=== PATIENT | female | born 1975 | race Caucasian/White ===

== ENCOUNTER 2020-07-11 10:10 | Outpatient (REF) | payer MEDICAID, SELFPAY ==
[2020-07-11 10:56] LABS: MANUAL DIFF FLAG NO
[2020-07-11 11:16] LABS: Basophils Percent Auto 0.3 % (0-2); Eosinophils Absolute Auto 0.1 X10*3/uL (0.0-0.4); Eosinophils Percent Auto 1.5 % (0-4); Hematocrit 35.8 % (37-47); Hemoglobin 11.9 g/dl (12.0-16.0); Imm Gran Abs Auto 0.03 X10*3/uL (0.00-0.03); Imm Gran Pct Auto 0.4 % (0.0-0.4); Lymphocytes Absolute Auto 1.8 X10*3/uL (1.2-4.9); Lymphocytes Percent Auto 24.9 % (20-40); Mean Corpuscular HGB Conc 33.2 g/dl (31.0-35.0); Mean Corpuscular Volume 84.2 fL (80-98); Mean Platelet Volume 10.2 fL (9.4-12.3); Monocytes Absolute Auto 0.4 X10*3/uL (0.1-1.2); Monocytes Percent Auto 5.8 % (2-11); Neutrophils Absolute Auto 4.9 X10*3/uL (2.0-8.3); Neutrophils Percent Auto 67.1 % (45-73); Platelet Count 316 X10*3/uL (160-400); Red Blood Count 4.25 X10*6/uL (4.20-5.50); Red Cell Distribution Width 13.7 % (11.0-16.0); White Blood Count 7.2 X10*3/uL (4.8-10.8)
[2020-07-11 11:24] LABS: Estimated Average Glucose 120 mg/dL; Hemoglobin A1c % 5.8 %
[2020-07-11 11:32] LABS: Alanine Aminotransferase 21 U/L (0-31); Albumin Level 4.4 g/dL (3.5-5.0); Alkaline Phosphatase 58 U/L (39-117); Anion Gap 13 (12-20); Aspartate Amino Transferase 16 U/L (5-31); Bilirubin Total 0.7 mg/dL (0.0-1.0); Blood Urea Nitrogen 12 mg/dL (9-16); Calcium 9.2 mg/dL (8.4-10.2); Carbon Dioxide 25 mmol/L (22-29); Chloride 105 mmol/L (96-108); Cholesterol 137 mg/dL; Estimated Glomerular Filt Rate > 60; Glucose Random 109 mg/dL (60-115); HDL Cholesterol 44 mg/dL; Iron 79 mcg/dL (30-160); LDL Cholesterol Calculated 74 mg/dl; Percent Iron Saturation 24 % (15-50); Sodium 139 mmol/L (135-145); Total Iron Binding Capacity 334 mcg/dL (228-428); Total Protein 7.8 g/dL (6.5-8.0); Triglycerides 99 mg/dL; Unsaturated Iron Binding 255 ug/dL
[2020-07-11 11:46] LABS: Ferritin 14 ng/mL (10-250)
[2020-07-11 12:15] LABS: Erythrocyte Sedimentation Rate 14 MM/HR (0-20)
[2020-07-12 13:27] LABS: Lyme Abs Screen <0.90 index
[2020-07-13 14:07] LABS: Anti Nuclear Antibody Screen NEGATIVE (NEGATIVE)
== END 2020-07-11 10:11 | disposition home or self-care (01) ==
LOC: HO.LAB 10:10
PROVIDERS: PCP Family Medicine; Visit Provider Family Medicine
DX: D64.9 Anemia, unspecified (principal); I10 Essential (primary) hypertension; M25.561 Pain in right knee; Z86.69 Personal history of other diseases of the nervous system and sense organs
CPT/HCPCS: 36415; 80053; 80061; 82728; 83036; 83540; 85025; 85652; 86038; 86039; 86617; 86618

== ENCOUNTER 2020-07-23 07:41 | Outpatient (REF) | payer MEDICAID, SELFPAY ==
--- NOTE | ~2020-07-23 | XR_ITS ---
EXAMINATION: KNEE X-RAY CLINICAL INFORMATION: Pain COMPARISON: None TECHNIQUE: Standing AP view of both knees and lateral and sunrise view of the right knee FINDINGS: Right knee: Bone alignment is normal. No fracture or dislocation is seen. The femoral tibial joint are normal. There are small osteophytes at the patellofemoral joint. There is no significant joint effusion. Standing AP view of the left knee is unremarkable. XR/XR knee RT 3V IMPRESSION: Small osteophytes at the right patella femoral joint otherwise unremarkable exam.
--- NOTE | ~2020-07-23 | XR_ITS ---
EXAMINATION: KNEE X-RAY CLINICAL INFORMATION: Pain COMPARISON: None TECHNIQUE: Standing AP view of both knees and lateral and sunrise view of the right knee FINDINGS: Right knee: Bone alignment is normal. No fracture or dislocation is seen. The femoral tibial joint are normal. There are small osteophytes at the patellofemoral joint. There is no significant joint effusion. Standing AP view of the left knee is unremarkable. XR/XR knee standing BI IMPRESSION: Small osteophytes at the right patella femoral joint otherwise unremarkable exam.
== END 2020-07-23 07:42 | disposition home or self-care (01) ==
LOC: HO.HOSX 07:41
PROVIDERS: Visit Provider Physician Assistant
DX: M25.561 Pain in right knee (principal); M22.2X1 Patellofemoral disorders, right knee
CPT/HCPCS: 20610; 73562; 73564; 73565; 99202; J1040

== ENCOUNTER 2021-07-24 09:49 | Outpatient (REF) | payer MEDICAID, SELFPAY ==
--- NOTE | ~2021-07-24 | MM_ITS ---
EXAMINATION: MM SCREENING DIGITAL BREAST TOMOSYNTHESIS, BILATERAL CLINICAL INFORMATION: Screening. Asymptomatic. History reduction mammoplasty. Prior mammography more than 10 years ago, purged. Family history breast cancer, mother, sister, paternal grandmother, maternal cousin. The lifetime risk of breast cancer based on the Tyrer-Cuzick Model is 31%. COMPARISON: None (current study represents no baseline exam). TECHNIQUE: Digital breast tomosynthesis is performed in both the craniocaudal and mediolateral oblique views along with computer-aided detection (CAD). Synthesized 2D images are generated from the tomosynthesis. FINDINGS: There are scattered areas of fibroglandular density (ACR BI-RADS breast composition Category b). Breast tissue composition borders on heterogeneously dense. There are no significant masses, abnormal calcifications, or other abnormalities. No architectural abnormality. The axilla and skin contours are unremarkable. MM/MM tomosynthesis screening BI IMPRESSION: No mammographic evidence of malignancy. ASSESSMENT: BI-RADS 1: Negative RECOMMENDATION: 1. Routine annual mammography screening. 2. The lifetime risk of breast cancer based on the Tyrer-Cuzick Model is 31%. Additional annual adjunct screening with breast MRI may be of benefit in women with a risk score of 20% or greater. This patient's information was entered into a reminder system with a target due date for their next mammogram.
== END 2021-07-24 09:50 | disposition home or self-care (01) ==
LOC: HO.MAMMO 09:49
PROVIDERS: Visit Provider Family Medicine
DX: Z12.31 Encounter for screening mammogram for malignant neoplasm of breast (principal)
CPT/HCPCS: 77063; 77067

== ENCOUNTER → 2021-08-09 14:59 | Outpatient (BNVA) | payer MEDICAID, SELFPAY | PROVIDERS: PCP Family Medicine; Referring Provider Family Medicine; Visit Provider Nurse Practitioner | DX: K64.9 Unspecified hemorrhoids (principal) | CPT/HCPCS: 99202; 99212 ==

== ENCOUNTER → 2021-09-05 11:17 | Outpatient (BNVA) | payer MEDICAID, SELFPAY | PROVIDERS: PCP Family Medicine; Visit Provider Surgery | DX: K64.8 Other hemorrhoids (principal) | CPT/HCPCS: 46600; 99202 ==

== ENCOUNTER 2021-10-18 06:51 | Day surgery (SDC) | payer MEDICAID, SELFPAY ==
[2021-10-15 09:53] VITALS: BMI 39.6
--- NOTE | 2021-10-17 11:00 | P.CONAN_ITS ---
Documented by User: Velia Teran NP 10/17/21 11:00 HPI - Anesthesia Eval Consult details Narrative: 46yo F for EUA, Hemorrhoidectomy PMFSH Active Problems Active Problems: All Active Problems (Updated 09/05/21 @ 14:03 by Osbaldo Herron MD) Hemorrhoids with complication (Acute) Morbid obesity (Acute) Migraines (Acute) Asthma (Acute) Hypertension (Acute) Hemorrhoids (Acute) Allergic rhinitis (Acute) Patellofemoral syndrome of right knee (Acute) Knee pain (Acute) Past Medical History Medical History Asthma Hemorrhoids with complication Hypertension Migraines Morbid obesity Surgical History Surgical History Hx of breast reduction, elective Hx of emergency section Social History Social History Alcohol intake: current Alcohol intake frequency: holidays/special occasions only Patient Tobacco Use Status: Never used Tobacco Use of substances other than those prescribed or required for medical reasons: No Are you DNR?: No Advance Directives: No Advance Directives Information Provided: Yes Patient : No 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al status: unemployed 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 Meds Allergies Allergy/AdvReac Type Severity Reaction Status Date / Time morphine Allergy Mild Anaphylaxis Verified 10/18/21 07:37 pollen extracts [POLLEN] Allergy Unknown UNKNOWN Unverified 09/05/21 11:31 Home Medications Medication Instructions Recorded Confirmed Last Taken Type albuterol sulfate 90 mcg/actuation 2 puff PO Q4-6H PRN Nausea 08/09/21 10/15/21 Unknown History aerosol inhaler (ProAir HFA) amitriptyline 25 mg tablet 25 mg PO BEDTIME 08/09/21 10/15/21 Unknown History chlorthalidone 25 mg tablet 25 mg PO DAILY 08/09/21 10/15/21 Unknown History docusate sodium 100 mg capsule 100 mg PO BID constipation 08/09/21 10/15/21 Unknown History ferrous sulfate 325 mg (65 mg 325 mg PO BID 08/09/21 10/15/21 Unknown History iron) tablet lisinopril 5 mg tablet 5 mg PO DAILY 08/09/21 10/15/21 Unknown History metoprolol succinate 50 mg 150 mg PO DAILY 08/09/21 10/15/2110/18/22 History tablet,extended release 24 hr ondansetron HCl 4 mg tablet 4 mg PO Q8H PRN nausea 08/09/21 10/15/21 Unknown History Exam Exam Date and Time: October 17, 2021 1100 Height,Weight and Vital Signs: Height 5 ft 6 in Weight 111.584 kg Assessment and Plan Assessment Anesthesia Assessment: Chart Reviewed Documented by User: Anshul Beach MD 10/18/21 08:25 [facility] Past Medical History Medical History Asthma Hemorrhoids with complication Hypertension Migraines Morbid obesity Patient : No Family History Family history of problems with anesthesia: No Surgical History Surgical History Hx of breast reduction, elective Hx of emergency section History of Problems with Anesthesia: No Social History Social History Alcohol intake: current Alcohol intake frequency: holidays/special occasions only Patient Tobacco Use Status: Never used Tobacco Use of substances other than those prescribed or required for medical reasons: No Are you DNR?: No Advance Directives: No Advance Directives Information Provided: Yes Patient : No 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al status: unemployed 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 Meds Allergies Allergy/AdvReac Type Severity Reaction Status Date / Time morphine Allergy Mild Anaphylaxis Verified 10/18/21 07:37 pollen extracts [POLLEN] Allergy Unknown UNKNOWN Unverified 09/05/21 11:31 Home Medications Medication Instructions Recorded Confirmed Last Taken Type albuterol sulfate 90 mcg/actuation 2 puff PO Q4-6H PRN Nausea 08/09/21 10/15/21 Unknown History aerosol inhaler (ProAir HFA) amitriptyline 25 mg tablet 25 mg PO BEDTIME 08/09/21 10/15/21 Unknown History chlorthalidone 25 mg tablet 25 mg PO DAILY 08/09/21 10/15/21 Unknown History docusate sodium 100 mg capsule 100 mg PO BID constipation 08/09/21 10/15/21 Unknown History ferrous sulfate 325 mg (65 mg 325 mg PO BID 08/09/21 10/15/21 Unknown History iron) tablet lisinopril 5 mg tablet 5 mg PO DAILY 08/09/21 10/15/21 Unknown History metoprolol succinate 50 mg 150 mg PO DAILY 08/09/21 10/15/21 10/18/21 History tablet,extended release 24 hr ondansetron HCl 4 mg tablet 4 mg PO Q8H PRN nausea 08/09/21 10/15/21 Unknown History Exam Airway Mallampati Class: II TM Dist: >3cm Neck ROM: Full Loose/Missing/Broken Teeth: No Heart: ok Lungs: ok Assessment and Plan Final Anesthetic Review Family History of Problems with Anesthesia: No History of Problems with Anesthesia: No NPO: Yes ASA Class: II Final Preanesthetic Review: No Changes in Pt Med Stat, Meds/Allgs Chart Reviewed, Consent Obtained/Reviewed and Anes Risks/Benef Reviewed Patient Risk: Intermediate Procedure Risk: Intermediate Anesthetic Plan Anesthetic Plan: GA and Agree w/ Assess. and Plan Disposition: Standard PACU
[2021-10-18] VITALS (10 sets, daily range): BP systolic 136–181; BP diastolic 76–87; PULSE 52–65; RESP 12–18; TEMP 36.5–37.1; O2SAT 94–99; BMI 37.8
[2021-10-18 07:32] LABS: UPreg QC Valid YES; Urine Pregnancy NEGATIVE (NEGATIVE)
--- NOTE | 2021-10-18 08:08 | P.HPSUR_ITS ---
Pre-Procedural Eval Section A Date of Service: 10/18/21 Section B Chief Complaint: hemorrhoids Details of Present Illness: Has long history of pain and swelling with bulky hemorrhoids Relevant Family History (Specify if Yes): No Relevant Social History: None Allergies: Allergies Allergy/AdvReac Type Severity Reaction Status Date / Time morphine Allergy Mild Anaphylaxis Verified 10/18/21 07:37 pollen extracts [POLLEN] Allergy Unknown UNKNOWN Unverified 09/05/21 11:31 Review of Systems Sugical H&P ROS: Negative: Constitution, Cardiovascular, Respiratory, Neurological, Psychiatric, Hem-Onc, Allergic/Immunologic, Gastrointestinal, Genitourinary, Musculoskeletal, Integumentary, Endocrine and Eyes/Ears/N ose/Throat Exam Surgical H&P Exam: Normal: HEENT, Normal: Heart, Normal: Lungs, Normal: Extremities, Normal: Abdomen, Normal: Skin and Normal: Neurological Exam Comment: Bulky hemorrhoids Plan Diagnosis/Plan: Unchanged I have reviewed the history and physical and performed a pertinent physical examination on my patient. No changes have occurred unless specified.
--- NOTE | 2021-10-18 09:24 | P.OP_ITS ---
Operative Note Operative Note Date of Service: 10/18/21 Narrative: Preop diagnosis: Internal and external hemorrhoids, with chronic pain and bleeding Postop diagnosis: The same Procedure: Exam under anesthesia hemorrhoidectomy x3 columns Surgeon: Osbaldo Herron MD The patient is a 46-year-old female, who was had chronic complaints of pain and bleeding with her hemorrhoids. She was noted to have bulky hemorrhoidal columns a mix of internal external on both the left and right side on examination in the office. She wanted to proceed with hemorrhoidectomy. She understood the technique of the procedure and was aware of the risks, benefits, and alternatives She was brought to the operating room. She was placed in prone orlin-knife position under general anesthesia via endotracheal tube. The buttocks were retracted with wide tape laterally. The perianal area was prepped and draped in the usual sterile fashion. A surgical time-out was done. The patient received Cefotan 2 g IV preoperatively. I infiltrated the perianal area with lidocaine 1%. Examination of the anal orifice revealed bulky external hemorrhoidal columns mostly on the left. I inserted a Alondra Wasserman retractor and examined the anal canal circumferentially. Again these columns were seen as a mix of internal external. There was 1 bulky hemorrhoidal column on the right anterior, right posterior as well as the left side. I applied a Mendes grasper at the large hemorrhoidal column on the right anteriorly. Had a neuvcl-te-sxuut stitch at the pedicle past the dentate line. This was done using a chromic 3-0. I made an incision around this hemorrhoidal column to the perianal skin using a blade 15. I excised this hemorrhoidal column above the plane of the sphincters using scissors. I closed this incision with a running chromic 3-0 stitch. Additional hemostatic qqeglg-ut-axelq sut ures were placed as well. This procedure was duplicated on the hemorrhoidal column on the left lateral side. Again this was retracted the Mendes grasper. I made a figure stitch at the pedicle and made an incision around this column to the perianal skin using blade 15. I excised this hemorrhoidal column above the plane of sphincters along this incision using a pair of scissors and closed this incision with a running chromic 3-0 stitch. Again hemostatic sutures were placed in addition There was another hemorrhoidal column on the right side more posteriorly and this was removed in the same fashion as above. This was retracted with a Mendes grasper and I made a yieehf-kw-ggnlo stitch at the pedicle using chromic 3-0. I made an incision around this hemorrhoidal column to the perianal skin using blade 15. And excised this above the plane of sphincters using scissors. I closed this incision with a running chromic 3-0 stitch as well I observed for hemostasis. Additional hemostatic vwmyll-mw-qdeaq sutures were placed. Once hemostasis was verified after observation for about 2 minutes, I placed and rolled Gelfoam into the anal canal I infiltrated the perianal area with Marcaine 0.5% for postop analgesia. Procedure was then completed. The patient tolerated procedure well. There were no complications noted. Initial final counts of sponges and instruments were correct. Estimated blood loss was about 25 cc . The patient extubated without difficulty and transferred to the recovery room with stable vital signs.
[2021-10-18] MEDS: Acetaminophen 325 MG TABLET 650 MG PO (10:15)
[2021-10-18] MEDS: fentaNYL citrate/PF 100 MCG/2 ML VIAL 50 MCG IVPUSH (10:16)
== END 2021-10-18 11:40 | disposition home or self-care (01) ==
PROVIDERS: Nurse Practitioner; PCP Family Medicine; Visit Provider Surgery
PROC: (CPT 46260; principal; 2021-10-18 08:30)
DX: K64.8 Other hemorrhoids (principal); K64.4 Residual hemorrhoidal skin tags; G89.29 Other chronic pain; K59.00 Constipation, unspecified; I10 Essential (primary) hypertension; E66.01 Morbid (severe) obesity due to excess calories; Z68.39 Body mass index [BMI] 39.0-39.9, adult; J45.909 Unspecified asthma, uncomplicated; Z79.899 Other long term (current) drug therapy; Z88.8 Allergy status to other drugs, medicaments and biological substances
CPT/HCPCS: 46260; 81025; 88304; J1100; J1885; J2250; J2405; J2795; J3010

== ENCOUNTER 2021-10-19 09:52 | Emergency (ER) | payer MEDICAID, SELFPAY ==
[2021-10-19 09:57] VITALS: BP 190/105; PULSE 66; RESP 19; TEMP 36.6; O2SAT 98; BMI 37.8
--- NOTE | 2021-10-19 12:02 | ED_ITS ---
HPI - General Adult General Chief complaint: General Medical Stated complaint: hemorrhoids Time Seen by Provider: 10/19/21 11:36 Source: patient Mode of arrival: ambulatory Limitations: no limitations History of Present Illness HPI narrative: 46 yo female who is POD 1 from hemorrhoidectomy who presents with rectal pain and bump . Had hemorrhoidectomy for internal hemorrhouds yesterday by Dr Herron and felt well after discharge. Last night increased pain after voiding and feels bump on the outside that wasnt there. She has not had bowel movement yet. No fevers, chills, vomiting. Took last dose of ibuprofen/oxycodone at 8am. Related Data Home Medications Medication Instructions Recorded Confirmed albuterol sulfate 90 mcg/actuation 2 puff PO Q4-6H PRN Nausea 08/09/21 10/15/21 aerosol inhaler (ProAir HFA) amitriptyline 25 mg tablet 25 mg PO BEDTIME 08/09/21 10/15/21 chlorthalidone 25 mg tablet 25 mg PO DAILY 08/09/21 10/15/21 docusate sodium 100 mg capsule 100 mg PO BID constipation 08/09/21 10/15/21 ferrous sulfate 325 mg (65 mg 325 mg PO BID 08/09/21 10/15/21 iron) tablet lisinopril 5 mg tablet 5 mg PO DAILY 08/09/21 10/15/21 metoprolol succinate 50 mg 150 mg PO DAILY 08/09/21 10/15/21 tablet,extended release 24 hr ondansetron HCl 4 mg tablet 4 mg PO Q8H PRN nausea 08/09/21 10/15/21 Previous Rx's Medication Instructions Recorded ibuprofen 600 mg tablet 600 mg PO Q6H PRN pain #30 tabs 10/18/21 oxycodone-acetaminophen 5 mg-325 1 tab PO Q4-6H PRN pain #30 tabs 10/18/21 mg tablet (Percocet) lidocaine 4 % topical gel 1 appl topical TID PRN pain #113 10/19/21 grams Allergies Allergy/AdvReac Type Severity Reaction Status Date / Time morphine Allergy Mild Anaphylaxis Verified 10/18/21 07:37 pollen extracts [POLLEN] Allergy Unknown UNKNOWN Unverified 09/05/21 11:31 Review of Systems Review of Systems: Yes all other systems are reviewed and are negative Constitutional: Constitutional: Reports no additional constitutional complaints, Denies body ache(s), Denies chills, Denies fever(s), Denies headache(s) and Denies weakness Eyes: Eyes: Reports no additional eye complaints and Denies change in vision ENT: Reports system reviewed and no additional complaints, except as documented, Denies dizziness, Denies headache(s), Denies nasal congestion, Denies nasal discharge and Denies neck pain Cardiovascular: Cardiovascular: Reports no additional cardiovascular complaints, Denies chest pain, Denies leg edema and Denies dyspnea Respiratory: Respiratory: Reports no additional respiratory complaints, Denies cough and Denies dyspnea Gastrointestinal: Gastrointestinal: Reports no additional gastrointestinal complaints, Denies abdominal pain, Denies diarrhea, Denies nausea and Denies vomiting Comments: +rectal pain Genitourinary: Genitourinary: Reports no additional female genitourinary complaints and Denies urinary incontinence Musculoskeletal: Musculoskeletal: Reports no additional musculoskeletal complaints, Denies back pain, Denies arthralgias, Denies joint swelling, Denies neck pain, Denies numbness and Denies tingling Integumentary/Breasts: Skin/Breast: Reports system reviewed and no additional complaints, except as docu and Denies rash Neurologic: Reports system reviewed and no additional complaints, except as documented, Denies dizziness, Denies headache(s), Denies numbness, Denies tingling and Denies weakness PMFSH Past Medical History Attestation statement: The following information was validated with the patient. 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 Physical Exam ED Vital Signs: Vital Signs - 24 hr 10/19/21 09:57 Temperature 98 F Pulse Rate 66 Respiratory Rate 19 Blood Pressure 190/105 H Pulse Oximetry 98 Oxygen Delivery Method Room Air BMI result Body Mass Index 37.8 Const General: cooperative, healthy appearing and comfortable Orientation/consciousness: patient oriented x3 Limitations: no limitations HENMT Head: Yes normal to inspection Ears: hearing grossly normal bilaterally Eyes General: appearance normal, both eyes and all related structures Pupils: Equal, round and reactive pupils present Neck Neck: Yes normal visual inspection Chest Chest palpation & inspection: normal inspection of the chest Resp Effort & Inspection: normal respiratory effort Cardio Peripheral pulses: Peripheral pulses 2+ throughout GI 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 Herron with a painful bump noted externally throughout the night. On exam the patient has what appears to be ?external hemorrhoid but does not appear to be thrombosed. There is no redness, drainage from the site. Patient is afebrile and nontoxic appearing. Discussed the case with on-call surgery Dr. Manzano. Recommended topical lidocaine for home. Continue home medications and stool regimen. Patient should follow-up with Dr. Herron as next week Medical Records Medical records reviewed: Yes I reviewed the patient's medical records. Lab Data Lab results reviewed: Yes I reviewed the patient's lab results. Discharge Plan Discharge Clinical Impression: Hemorrhoids Patient Disposition: Home, Self-Care Instructions: Hemorrhoids (ED), Sitz Bath (DC), Hemorrhoidectomy (DC) Additional Instructions: Continue home medications Apply the topical numbing medications to the affected area which was general surgeries recommendation Call Dr Herron office Thursday for follow-up as discussed Prescriptions: New lidocaine 4 % gel 1 appl topical TID PRN (Reason: pain) Qty: 113 0RF No Action oxycodone-acetaminophen [Percocet] 5-325 mg tablet 1 tab PO Q4-6H PRN (Reason: pain) Qty: 30 0RF Rx Instructions: Partial Fill upon patient request. ibuprofen 600 mg tablet 600 mg PO Q6H PRN (Reason: pain) Qty: 30 0RF metoprolol succinate 50 mg tablet extended release 24 hr 150 mg PO DAILY lisinopril 5 mg tablet 5 mg PO DAILY amitriptyline 25 mg tablet 25 mg PO BEDTIME chlorthalidone 25 mg tablet 25 mg PO DAILY albuterol sulfate [ProAir HFA] 90 mcg/actuation HFA aerosol inhaler 2 puff PO Q4-6H PRN (Reason: Nausea) ondansetron HCl 4 mg tablet 4 mg PO Q8H PRN (Reason: nausea) ferrous sulfate 325 mg (65 mg iron) tablet 325 mg PO BID docusate sodium 100 mg capsule 100 mg PO BID Referrals: Osbaldo Herron MD [Physician] - 3 days
[2021-10-19] MEDS: oxyCODONE HCl Immed Release 5 MG TABLET PO (12:24)
[2021-10-19] MEDS: Ketorolac Tromethamine 60 MG/2 ML VIAL IM (12:25)
[2021-10-19] MEDS: Acetaminophen 325 MG TABLET 975 MG PO (12:25)
== END 2021-10-19 13:05 | disposition home or self-care (01) ==
PROVIDERS: Emergency Provider Emergency Medicine; PCP Family Medicine
DX: K64.9 Unspecified hemorrhoids (principal); I10 Essential (primary) hypertension; E66.01 Morbid (severe) obesity due to excess calories; Z68.37 Body mass index [BMI] 37.0-37.9, adult; Z79.899 Other long term (current) drug therapy
CPT/HCPCS: 96372; 99283; 99284; J1885

== ENCOUNTER 2023-01-23 10:23 | Outpatient (AMB) | payer MEDICAID, SELFPAY ==
--- NOTE | 2023-01-23 10:26 | A.OFFVIS_ITS ---
Intake Vital Signs 3 01/23/23 10:27 Height 5 ft 6 in Weight 238 lb 1.588 oz BMI 38.4 BP 137/74 Blood Pressure Location Rt brachial Position Sitting Pulse 68 Intake Visit Reasons: Colonoscopy screening Intake Note: Patient presents to in office visit today for colonoscopy screening. CC: Patient c/o abdominal bloating, epigastric pain, and upset stomach after eating. She also reports increased gas,n and nausea. Entry Level Account Manager Required: No Allergies morphine Allergy (Mild, Verified 01/23/23 10:35) Anaphylaxis pollen extracts [POLLEN] Allergy (Unknown, Verified 01/23/23 10:35) UNKNOWN sumatriptan Adverse Reaction (Intermediate, Verified 01/23/23 11:00) Numbness HPI Colonoscopy screening 2 HPI0 Details 46-YEAR-OLD FEMALE HERE FOR PREPROCEDURA L MEETING TO DISCUSS a screening colonoscopy.. She is referred by Gisselle Pfefifer MD of [facility]. PMX Hypertension Headache Asthma Allergic rhinitis * SURGICAL HISTORY hemorrhoidectomy - 2021 Botox injection C section Bilateral breast reduction * ALLERGIES Morphine - tachycardia Imitrex - numbness * [employer] LABS: none since 2020 TODAY'S VISIT [place] #declines This will be her first colonoscopy. 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 However she will have diarrhea if she eats greasy foods such as fried foods or at [employer]. Her dtr hd her GB removed r/t foods. No known food allergies in family. She takes zofran for the bloating and burping. She will also have HB at times. She does not take consistent acid reducing medications. The above sx happen 3-4 days during the week, she has colicky pain when it happens and will last about 2-3 hours and is relieved with defecation. The pain will reach 9/10 at times. Will get US and HP breath test. There are no prior problems with anesthesia or sedation. Her asthma is well controlled, and she denies any cardiac problems. No ID problems. No known FHX of crc or polyps. . Return office visit in 6 weeks to yas iyer her response to the dicyclomine and of course after the colonoscopy. 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 [employer] Const Denies fatigue, Denies fever(s), Denies night sweats, Denies poor appetite and Denies weight loss Eyes Details: glasses Reports requires corrective lenses ENT Reports Normal hearing present, Denies dysphagia, Denies odynophagia, Denies throat swelling and Denies tongue swelling Card Reports no additional complaints Resp Reports no additional complaints GI Reports abdominal pain, Denies melena, Reports bloating, Denies hematochezia, Reports constipation, Denies GI cramping, Denies dysphagia, Denies excessive flatus, Denies early satiety, Reports heartburn, Reports diarrhea, Denies nausea, Denies odynophagia, Denies vomiting and Denies hematemesis Skin/Breast Denies pruritus, Denies lesions, Denies rash and Denies jaundice Neuro Reports Normal hearing present and Denies Abnormal speech present Endo Denies fatigue Aller/Immun Denies throat swelling and Denies tongue swelling Physical Exam Vital Signs: Last Vital Signs Pulse 68 01/23/23 10:27 BP 137/74 01/23/23 10:27 BMI result Body Mass Index 38.4 Const General: cooperative, no acute distress, well developed and well groomed Nutritional Appearance: well nourished and obese morbidly obese Orientation/consciousness: oriented to person, oriented to place and oriented to time Limitations: No language barrier HEENT Head: Yes normocephalic and Yes atraumatic Eyes General: appearance normal, both eyes and all related structures Pupils: Equal, round and reactive pupils present Neck Neck: Yes normal visual inspection and Yes no lymphadenopathy Thyroid: Thyroid normal Resp Effort & Inspection: normal respiratory effort and able to speak in complete sentences Auscultation: clear to auscultation bilaterally Cardio Rate: regular rate Rhythm: regular rhythm Heart sounds: Normal, physiologic split S2 sound present Peripheral pulses: radial pulses present and posterior tibial pulses present GI Inspection: Yes distended (mildly), Yes Abdominal panniculus present, Yes obesity, Yes scar and Yes striae Palpation (GI): Soft to palpation, nontender, no guarding, not rigid and No hepatosplenomegaly present Percussion: Yes normal to percussion Auscultation: normal bowel sounds Rectal Exam - Female: deferred Abdomen image: 2 1. surgical scar Skin General skin exam: no rashes or lesions noted, turgor normal, skin not dry, no jaundice, No spider nevi and no striae Rashes: no rashes Nails: normal Neuro General: oriented to person, oriented to place and oriented to time Cranial nerves: Yes Equal, round and reactive pupils present and Yes Normal hearing present Speech: No Abnormal speech present Extrem General: Yes normal to inspection, No clubbing, No cyanosis and No edema Psych Appearance: grossly normal and well kempt Mental Status: mental status grossly normal Speech and movement: Normal speech and movement present Affect: normal affect Attitude: cooperative Thought process: Normal thought process present and not confabulating Thought content: Normal thought content present Insight: Limited insight present (Psych) Judgement: Limited judgement present (Psych) Assessment & Plan Assessment & Plan (1) Pre-op examination: Code(s): Z01.818 - Encounter for other preprocedural examination (2) Morbid obesity: Code(s): E66.01 - Morbid (severe) obesity due to excess calories (3) Asthma: Code(s): J45.909 - Unspecified asthma, uncomplicated (4) Irritable bowel syndrome with both constipation and diarrhea: Code(s): K58.2 - Mixed irritable bowel syndrome (5) Upper abdominal pain: Code(s): R10.10 - Upper abdominal pain, unspecified Plan [place] #declines This will be her first colonoscopy. 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 However she will have diarrhea if she eats greasy foods such as fried foods or at [employer]. Her dtr hd her GB removed r/t foods. No known food allergies in family. She takes zofran for the bloating and burping. She will also have HB at times. She does not take consistent acid reducing medications. The above sx happen 3-4 days during the week, she has colicky pain when it happens and will last about 2-3 hours and is relieved with defecation. The pain will reach 9/10 at times. Will get US and HP breath test. There are no prior problems with anesthesia or sedation. Her asthma is well controlled, and she denies any cardiac problems. No ID problems. No known FHX of crc or polyps. . Return office visit in 6 weeks to evaluate her response to the dicyclomine and of course after the colonoscopy. Orders: Orders 2 Complete Blood Count Auto Diff Today E66.01 - Morbid (severe) obesity due to excess calories, J45.909 - Unspecified asthma, uncomplicated, Z01.818 - Encounter for other preprocedural examination US abdomen complete Today R10.10 - Upper abdominal pain, unspecified Comprehensive Met. Panel Today E66.01 - Morbid (severe) obesity due to excess calories, J45.909 - Unspecified asthma, uncomplicated, Z01.818 - Encounter for other preprocedural examination Colonoscopy - GI Use Only Today E66.01 - Morbid (severe) obesity due to excess calories, J45.909 - Unspecified asthma, uncomplicated, Z01.818 - Encounter for other preprocedural examination H Pylori Breath Test Today A04.8 - Other specified bacterial intestinal infections Medications: New 2 bisacodyl (Dulcolax (bisacodyl)) 10 mg (2 x 5 mg) PO BEDTIME 2 days 4 tabs 0RF sennosides (Senna Laxative) 17.2 mg (2 x 8.6 mg) PO BEDTIME 60 tabs 6RF K58.2 - Mixed irritable bowel syndrome dicyclomine 10 mg PO QID 120 caps 6RF K58.2 - Mixed irritable bowel syndrome Coding Level of Care Code New Pt Level 3 (64955) Diagnoses Pre-op examination Z01.818 Morbid obesity E66.01 Asthma J45.909 Irritable bowel syndrome with both constipation and diarrhea K58.2 Upper abdominal pain R10.10
[2023-01-23 10:27] VITALS: BP 137/74; PULSE 68; BMI 38.4
== END 2023-01-23 11:50 | disposition home or self-care (01) ==
PROVIDERS: PCP Family Medicine; Visit Provider Nurse Practitioner
DX: Z01.818 Encounter for other preprocedural examination (principal); Z12.11 Encounter for screening for malignant neoplasm of colon; K58.2 Mixed irritable bowel syndrome
CPT/HCPCS: 99212

== ENCOUNTER → 2023-01-23 10:23 | Outpatient (BNVA) | payer MEDICAID, SELFPAY | PROVIDERS: PCP Family Medicine; Visit Provider Nurse Practitioner | DX: Z01.818 Encounter for other preprocedural examination (principal); K58.2 Mixed irritable bowel syndrome; R10.10 Upper abdominal pain, unspecified; J45.909 Unspecified asthma, uncomplicated; E66.01 Morbid (severe) obesity due to excess calories | CPT/HCPCS: 83013; 99212 ==

== ENCOUNTER 2023-01-23 14:29 | Outpatient (REF) | payer MEDICAID, SELFPAY ==
[2023-01-30 13:43] LABS: H Pylori Breath Test Positive (Negative)
== END 2023-01-23 14:30 | disposition home or self-care (01) ==
LOC: HO.LNP 14:29
PROVIDERS: Visit Provider Nurse Practitioner
DX: A04.8 Other specified bacterial intestinal infections (principal)
CPT/HCPCS: 83013

== ENCOUNTER 2023-03-02 09:44 | Outpatient (REF) | payer MEDICAID, SELFPAY ==
--- NOTE | ~2023-03-02 | US_ITS ---
EXAMINATION: US ABDOMEN COMPLETE CLINICAL INFORMATION: Upper abdominal pain, unspecified. COMPARISON: Ultrasound abdomen 07/04/2010. TECHNIQUE: Real-time imaging of the abdominal viscera. FINDINGS: PANCREAS: The pancreatic tail is obscured by overlying bowel gas. The well-seen portions of the head and body are within normal limits. ABDOMINAL AORTA: The proximal, mid, and distal segments are normal in caliber. INFERIOR VENA CAVA: Visualized portions are normal. LIVER: Increased liver parenchyma echogenicity. There is a 3.7 x 3.1 x 3.2 cm rounded hypoechoic observation in the right hepatic lobe adjacent to the gallbladder fossa without discrete vascularity on color Doppler. No intrahepatic biliary ductal dilatation. GALLBLADDER: There is a 1.3 cm calculus impacted in the gallbladder neck. The gallbladder wall is within the upper limits of normal measuring 0.3 cm. No pericholecystic free fluid. Negative Dan's sign. COMMON BILE DUCT: Normal in caliber measuring 0.5 cm in diameter. RIGHT KIDNEY: Normal. No hydronephrosis. No renal calculi or focal parenchymal lesions. The kidney measures 11.1 cm in maximum dimension. LEFT KIDNEY: Normal. No hydronephrosis. No renal calculi or focal parenchymal lesions. The kidney measures 13.0 cm in maximum dimension. SPLEEN: Normal. The spleen measures 11.2 cm in maximum dimension. FREE FLUID: None. US/US abdomen complete IMPRESSION: 1. Cholelithiasis with a 1.3 cm calculus impacted in the gallbladder neck but no sonographic evidence to suspect acute cholecystitis. 2. There is a 3.7 cm rounded hypoechoic observation in the right hepatic lobe adjacent to the gallbladder fossa. While this could represent a focal area of fatty sparing, in view of size and somewhat rounded/masslike morphology, further characterization with an abdominal MRI with and without intravenous contrast is recommended. 3. Increased hepatic echogenicity suggesting hepatic steatosis or hepatocellular disease. Correlate with liver function tests. The report will be called to the ordering clinician by a [facility] Physician Feeder Catcher Tobacco.
== END 2023-03-02 09:45 | disposition home or self-care (01) ==
LOC: HO.US 09:44
PROVIDERS: PCP Family Medicine; Visit Provider Nurse Practitioner
DX: R10.10 Upper abdominal pain, unspecified (principal)
CPT/HCPCS: 76700

== ENCOUNTER 2023-03-06 09:53 | Outpatient (AMB) | payer MEDICAID, SELFPAY ==
[2023-03-06 10:03] VITALS: BP 180/98; PULSE 63; BMI 38.9
--- NOTE | 2023-03-06 10:03 | MHC.OFFVIS ---
Intake Vital Signs 03/06/23 10:03 Height 5 ft 6 in Weight 241 lb BMI 38.9 BP 180/98 H Blood Pressure Location Rt brachial Position Sitting Pulse 63 Intake Visit Reasons: H pylori/US follow up Intake Note: Patient returns to in office visit today in follow up of H pylori and US. CC: Patient states she is doing better from epigastric pain, bloating, and heartburn. Pt requesting refill on Ondansentron.Denies other GI symptoms. 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 Accompanied by: Self / Same As Patient Allergies morphine Allergy (Mild, Verified 03/06/23 10:11) Anaphylaxis pollen extracts [POLLEN] Allergy (Unknown, Verified 03/06/23 10:11) UNKNOWN sumatriptan Adverse Reaction (Intermediate, Verified 03/06/23 10:11) Numbness HPI H pylori/US follow up HPI Details Assessment & Plan (1) Pre-op examination: Code(s): Z01.818 - Encounter for other preprocedural examination (2) Morbid obesity: Code(s): E66.01 - Morbid (severe) obesity due to excess calories (3) Asthma: Code(s): J45.909 - Unspecified asthma, uncomplicated (4) Irritable bowel syndrome with both constipation and diarrhea: Code(s): K58.2 - Mixed irritable bowel syndrome (5) Upper abdominal pain: Code(s): R10.10 - Upper abdominal pain, unspecified Plan Turk[place] #declines This will be her first colonoscopy. 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 However she will have diarrhea if she eats greasy foods such as fried foods or at [employer]. Her dtr hd her GB removed r/t foods. No known food allergies in family. She takes zofran for the bloating and burping. She will also have HB at times. She does not take consistent acid reducing medications. The above sx happen 3-4 days during the week, she has colicky pain when it happens and will last about 2-3 hours and is relieved with defecation. The pain will reach 9/10 at times. Will get US and HP breath test. There are no prior problems with anesthesia or sedation. Her asthma is well controlled, and she denies any cardiac problems. No ID problems. No known FHX of crc or polyps. . Return office visit in 6 weeks to evaluate her response to the dicyclomine and of course after the colonoscopy. Orders: Orders Complete Blood Cou nt Auto Diff Today E66.01 - Morbid (s evere) obesity due to excess calorie s, J45.909 - Unspe cified asthma, unc omplicated, Z01.81 8 - Encounter for other preprocedura l examination US abdomen complet e Today R10.10 - Upper abd ominal pain, unspe cified Comprehensive Met. Panel Today E66.01 - Morbid (s evere) obesity due to excess calorie s, J45.909 - Unspe cified asthma, unc omplicated, Z01.81 8 - Encounter for other preprocedura l examination Colonoscopy - GI U se Only Today E66.01 - Morbid (s evere) obesity due to excess calorie s, J45.909 - Unspe cified asthma, unc omplicated, Z01.81 8 - Encounter for other preprocedura l examination H Pylori Breath Te st Today A04.8 - Other spec ified bacterial in testinal infection s Medications: New bisacodyl (Dulcola x (bisacodyl)) 10 mg (2 x 5 mg) P O BEDTIME 2 days 4 tabs 0RF sennosides (Senna Laxative) 17.2 mg (2 x 8.6 m g) PO BEDTIME 60 t abs 6RF K58.2 - Mixed irri table bowel syndro me dicyclomine 10 mg PO QID 120 caps 6RF K58.2 - Mixed irri table bowel syndro me LABS: None of the requested labs were obtained Laboratory Tests 01/23/23 11:49 H. pylori Breath T est Positive ULTRASOUND THE ABDOMEN 03/03/23 FINDINGS: PANCREAS: The pancreatic tail is obscured by overlying bowel gas. The well-seen portions of the head and body are within normal limits. ABDOMINAL AORTA: The proximal, mid, and distal segments are normal in caliber. INFERIOR VENA CAVA: Visualized portions are normal. LIVER: Increased liver parenchyma echogenicity. There is a 3.7 x 3.1 x 3.2 cm rounded hypoechoic observation in the right hepatic lobe adjacent to the gallbladder fossa without discrete vascularity on color Doppler. No intrahepatic biliary ductal dilatation. GALLBLADDER: There is a 1.3 cm calculus impacted in the gallbladder neck. The gallbladder wall is within the upper limits of normal measuring 0.3 cm. No pericholecystic free fluid. Negative Dan's sign. COMMON BILE DUCT: Normal in caliber measuring 0.5 cm in diameter. RIGHT KIDNEY: Normal. No hydronephrosis. No renal calculi or focal parenchymal lesions. The kidney measures 11.1 cm in maximum dimension. LEFT KIDNEY: Normal. No hydronephrosis. No renal calculi or focal parenchymal lesions. The kidney measures 13.0 cm in maximum dimension. SPLEEN: Normal. The spleen measures 11.2 cm in maximum dimension. FREE FLUID: None. US/US abdomen complete IMPRESSION: 1. Cholelithiasis with a 1.3 cm calculus impacted in the gallbladder neck but no sonographic evidence to suspect acute cholecystitis. 2. There is a 3.7 cm rounded hypoechoic observation in the right hepatic lobe adjacent to the gallbladder fossa. While this could represent a focal area of fatty sparing, in view of size and somewhat rounded/masslike morphology, further characterization with an abdominal MRI with and without intravenous contrast is recommended. 3. Increased hepatic echogenicity suggesting hepatic steatosis or hepatocellular disease. Correlate with liver function tests. The report will be called to the ordering clinician by a [facility] Phys[facility] [employer] Manager. COLONOSCOPY Scheduled for 03/10/2023 BIOPSY TODAY'S VISIT [place] #declines LABS: None of the requested labs were obtained She is only using the bentyl qd and this has helped resolve the colicky pain. She can also take extra doses if she has breakthrough. She feels that the bentyl make her pan devulcanizer her bowels more. She is also taking the omeprazole every day now and her HB has resolved. She completed the abx for the H pylori, and we will need to do a stool test to confirm eradication. I treated her with Leva/amox therapy. She saw Dr. Herron for roid surgery, and they are doing an emergency surgery on her as her ext roids are severe. The creon she pick due only 100 tablets r/t pharmacy having stock problems. Hopefully this will get resolved as she had the 1.3cm stone in the neck of the GB. Perhaps Dr. Herron can handle this too, I have provided a referral. She still has some epigastric pain, but it is not as bloated as before. Between H pylori and the gallstones her sx are likely multifactorial. She uses zofran for intermittent nausea and I give her a refill. Told her to go get labs today. Keep appt 03/31 after colonoscopy. 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 Review of Systems Const Denies fatigue, Denies fever(s), Reports headache(s), Denies night sweats, Denies poor appetite and Denies weight loss ENT Reports Normal hearing present, Denies dental pain, Denies dysphagia, Reports headache(s), Denies hearing loss, Denies mouth pain, Denies odynophagia, Denies throat swelling, Denies tongue swelling and Reports other (Dentition adequate) Card Reports no additional complaints Resp Reports no additional complaints GI Details: Reports abdominal pain, Denies melena, Denies bloating, Reports hematochezia, Reports constipation, Reports GI cramping, Denies dysphagia, Denies excessive flatus, Denies early satiety, Reports heartburn, Denies diarrhea, Reports nausea, Denies odynophagia, Denies vomiting and Denies hematemesis Skin/Breast Denies pruritus, Denies lesions, Denies rash and Denies jaundice Neuro Reports Normal hearing present, Denies Abnormal speech present and Reports headache(s) Endo Denies fatigue Aller/Immun Denies throat swelling and Denies tongue swelling Physical Exam Vital Signs: Last Vital Signs Pulse 63 03/06/23 10:03 BP 180/98 H 03/06/23 10:03 BMI result Body Mass Index 38.9 Const General: cooperative, no acute distress, well developed and well groomed Nutritional Appearance: well nourished and obese Orientation/consciousness: oriented to person, oriented to place and oriented to time Limitations: No language barrier HEENT Head: Yes normocephalic and Yes atraumatic Eyes General: appearance normal, both eyes and all related structures Pupils: Equal, round and reactive pupils present Neck Neck: Yes normal visual inspection and Yes no lymphadenopathy Thyroid: Thyroid normal Resp Effort & Inspection: normal respiratory effort and able to speak in complete sentences Auscultation: clear to auscultation bilaterally Cardio Rate: regular rate Rhythm: regular rhythm Heart sounds: Normal, physiologic split S2 sound present Peripheral pulses: radial pulses present and posterior tibial pulses present GI Inspection: No distended, Yes Abdominal panniculus present and Yes obesity Palpation (GI): Soft to palpation, nontender, no guarding, not rigid and No hepatosplenomegaly present Percussion: Yes normal to percussion Auscultation: normal bowel sounds Rectal Exam - Female: deferred Skin General skin exam: no rashes or lesions noted, turgor normal, skin not dry, no jaundice, No spider nevi and no striae Rashes: no rashes Nails: normal Neuro General: oriented to person, oriented to place and oriented to time Cranial nerves: Yes Equal, round and reactive pupils present and Yes Normal hearing present Speech: No Abnormal speech present Extrem General: Yes normal to inspection, No clubbing, No cyanosis and No edema Psych Appearance: grossly normal and well kempt Mental Status: mental status grossly normal Speech and movement: Normal speech and movement present Affect: normal affect Attitude: cooperative Thought process: Normal thought process present and not confabulating Thought content: Normal thought content present Insight: Fair insight present (Psych) and Limited insight present (Psych) Judgement: Fair judgement present (Psych) and Limited judgement present (Psych) Results Reviewed Results Reviewed: Laboratory Tests 03/06/23 11:22 WBC 7.6 Hgb 9.4 L Hct 29.9 L MCV 79.3 L MCH 24.9 L Plt Count 317 Laboratory Tests 01/23/23 11:49 H. pylori Breath Test Positive ULTRASOUND THE ABDOMEN 03/03/23 FINDINGS: PANCREAS: The pancreatic tail is obscured by overlying bowel gas. The well-seen portions of the head and body are within normal limits. ABDOMINAL AORTA: The proximal, mid, and distal segments are normal in caliber. INFERIOR VENA CAVA: Visualized portions are normal. LIVER: Increased liver parenchyma echogenicity. There is a 3.7 x 3.1 x 3.2 cm rounded hypoechoic observation in the right hepatic lobe adjacent to the gallbladder fossa without discrete vascularity on color Doppler. No intrahepatic biliary ductal dilatation. GALLBLADDER: There is a 1.3 cm calculus impacted in the gallbladder neck. The gallbladder wall is within the upper limits of normal measuring 0.3 cm. No pericholecystic free fluid. Negative Dan's sign. COMMON BILE DUCT: Normal in caliber measuring 0.5 cm in diameter. RIGHT KIDNEY: Normal. No hydronephrosis. No renal calculi or focal parenchymal lesions. The kidney measures 11.1 cm in maximum dimension. LEFT KIDNEY: Normal. No hydronephrosis. No renal calculi or focal parenchymal lesions. The kidney measures 13.0 cm in maximum dimension. SPLEEN: Normal. The spleen measures 11.2 cm in maximum dimension. FREE FLUID: None. US/US abdomen complete IMPRESSION: 1. Cholelithiasis with a 1.3 cm calculus impacted in the gallbladder neck but no sonographic evidence to suspect acute cholecystitis. 2. There is a 3.7 cm rounded hypoechoic observation in the right hepatic lobe adjacent to the gallbladder fossa. While this could represent a focal area of fatty sparing, in view of size and somewhat rounded/masslike morphology, further characterization with an abdominal MRI with and without intravenous contrast is recommended. 3. Increased hepatic echogenicity suggesting hepatic steatosis or hepatocellular disease. Correlate with liver function tests. The report will be called to the ordering clinician by a [facility] [employer] Manager. Assessment & Plan Assessment & Plan (1) H. pylori infection: Code(s): A04.8 - Other specified bacterial intestinal infections (2) Gallstones: Comment: 02/2023 ultrasound shows 1.3 cm stone impacted gallbladder neck no signs of acute cholecystitis Code(s): K80.20 - Calculus of gallbladder without cholecystitis without obstruction (3) Liver nodule: Comment: Ultrasound 03/03/2023 LIVER: Increased liver parenchyma echogenicity. There is a 3.7 x 3.1 x 3.2 cm rounded hypoechoic observation in the right hepatic lobe adjacent to the gallbladder fossa without discrete vascularity on color Doppler. No intrahepatic biliary ductal dilatation 2. There is a 3.7 cm rounded hypoechoic observation in the right hepatic lobe adjacent to the gallbladder fossa. While this could represent a focal area of fatty sparing, in view of size and somewhat rounded/masslike morphology, further characterization with an abdominal MRI with and without intravenous contrast is recommended. 3. Increased hepatic echogenicity suggesting hepatic steatosis or hepatocellular disease. Correlate with liver function tests. Code(s): K76.89 - Other specified diseases of liver (4) Hepatic steatosis: Code(s): K76.0 - Fatty (change of) liver, not elsewhere classified Plan COLONOSCOPY Scheduled for 03/10/2023 BIOPSY TODAY'S VISIT [place] #declines LABS: None of the requested labs were obtained She is only using the bentyl qd and this has helped resolve the colicky pain. She can also take extra doses if she has breakthrough. She feels that the bentyl make her pan devulcanizer her bowels more. She is also taking the omeprazole every day now and her HB has resolved. She completed the abx for the H pylori, and we will need to do a stool test to confirm eradication. I treated her with Leva/amox therapy. She saw Dr. Herron for roid surgery, and they are doing an emergency surgery on her as her ext roids are severe. The creon she pick due only 100 tablets r/t pharmacy having stock problems. Hopefully this will get resolved as she had the 1.3cm stone in the neck of the GB. Perhaps Dr. Herron can handle this too, I have provided a referral. She still has some epigastric pain, but it is not as bloated as before. Between H pylori and the gallstones her sx are likely multifactorial. She uses zofran for intermittent nausea and I give her a refill. Told her to go get labs today. She has a lot on her plate with roid surgery, possible eliecer and her daughter is about to have a baby!!She also suffers migraines and has botox injections for this. Keep appt 03/31 after colonoscopy. Next appointment discuss hepatic steatosis and possible additional workup for this including CT or MRI for the liver nodule. Orders: Orders H pylori Ag Stool Today A04.8 - Other specified bacterial intestinal infections Referrals General Surgery Referral K80.20 - Calculus of gallbladder without cholecystitis without obstruction Medications: Changed From ondansetron HCl 4 mg PO Q8H PRN nausea To ondansetron HCl 4 mg PO Q8H 20 tabs 3RF nausea Coding Level of Care Code Est Pt Level 3 (71822) Diagnoses H. pylori infection A04.8 Gallstones K80.20 Liver nodule K76.89 Hepatic steatosis K76.0
== END 2023-03-06 11:25 | disposition home or self-care (01) ==
PROVIDERS: PCP Family Medicine; Visit Provider Nurse Practitioner
DX: A04.8 Other specified bacterial intestinal infections (principal); K80.20 Calculus of gallbladder without cholecystitis without obstruction; K76.89 Other specified diseases of liver; K76.0 Fatty (change of) liver, not elsewhere classified
CPT/HCPCS: 99213

== ENCOUNTER 2023-03-06 09:53 | Outpatient (REF) | payer MEDICAID, SELFPAY ==
[2023-03-06 11:24] LABS: MANUAL DIFF FLAG NO
[2023-03-06 11:55] LABS: Basophils Percent Auto 0.3 % (0-2); Eosinophils Absolute Auto 0.1 X10*3/uL (0.0-0.4); Eosinophils Percent Auto 1.1 % (0-4); Hematocrit 29.9 % (37.0-47.0); Hemoglobin 9.4 g/dl (12.0-16.0); Imm Gran Abs Auto 0.03 X10*3/uL (0.00-0.03); Imm Gran Pct Auto 0.4 % (0.0-0.4); Lymphocytes Percent Auto 26.5 % (20-40); Mean Corpuscular HGB Conc 31.4 g/dl (31.0-35.0); Mean Corpuscular Hemoglobin 24.9 pg (27.0-33.0); Mean Corpuscular Volume 79.3 fL (80.0-98.0); Mean Platelet Volume 10.2 fL (9.4-12.3); Monocytes Absolute Auto 0.6 X10*3/uL (0.1-1.2); Monocytes Percent Auto 7.3 % (2-11); Neutrophils Absolute Auto 4.9 x10*3/uL (2.0-8.3); Neutrophils Percent Auto 64.4 % (45-73); Platelet Count 317 X10*3/uL (160-400); Red Blood Count 3.77 X10*6/uL (4.20-5.50); Red Cell Distribution Width 14.6 % (11.0-16.0); White Blood Count 7.6 X10*3/uL (4.8-10.8)
[2023-03-06 12:35] LABS: Alanine Aminotransferase 22 U/L (0-31); Albumin Level 4.2 g/dL (3.5-5.0); Alkaline Phosphatase 58 U/L (39-117); Anion Gap 13 (12-20); Aspartate Amino Transferase 15 U/L (5-31); Bilirubin Total 0.4 mg/dL (0.0-1.0); Blood Urea Nitrogen 12 mg/dL (9-16); Calcium 9.2 mg/dL (8.4-10.2); Carbon Dioxide 27 mmol/L (22-29); Chloride 102 mmol/L (96-108); Estimated Glomerular Filt Rate > 60; Glucose Random 86 mg/dL (60-115); Potassium 4.3 mmol/L (3.3-5.1); Sodium 138 mmol/L (135-145); Total Protein 7.9 g/dL (6.5-8.0)
== END 2023-03-06 09:54 | disposition home or self-care (01) ==
LOC: HO.LAB 09:53
PROVIDERS: PCP Family Medicine; Visit Provider Nurse Practitioner
DX: Z01.818 Encounter for other preprocedural examination (principal); E66.01 Morbid (severe) obesity due to excess calories; J45.909 Unspecified asthma, uncomplicated; A04.8 Other specified bacterial intestinal infections; K80.20 Calculus of gallbladder without cholecystitis without obstruction; K76.89 Other specified diseases of liver; K76.0 Fatty (change of) liver, not elsewhere classified
CPT/HCPCS: 36415; 80053; 85025; 87338; 99212

== ENCOUNTER 2023-03-10 11:59 | Day surgery (SDC) | payer MEDICAID, SELFPAY ==
--- NOTE | 2023-03-10 12:03 | P.CONAN_ITS ---
[facility] Active Problems Active Problems: All Active Problems (Updated 03/06/23 @ 12:18 by DAVID Pineda) Hepatic steatosis (Acute) Liver nodule (Acute) Gallstones (Acute) H. pylori infection (Acute) Upper abdominal pain (Acute) Irritable bowel syndrome with both constipation and diarrhea (Acute) Pre-op examination (Acute) Hemorrhoids with complication (Acute) Morbid obesity (Acute) Migraines (Acute) Asthma (Acute) Hypertension (Acute) Hemorrhoids (Acute) Allergic rhinitis (Acute) Patellofemoral syndrome of right knee (Acute) Knee pain (Acute) Past Medical History Medical History Hemorrhoids with complication Morbid obesity Asthma Hypertension Migraines Family History Family History Mother Kidney malignancy Sister Breast cancer Maternal Grandmother Skin cancer Family history of problems with anesthesia: No Surgical History Surgical History History of hemorrhoidectomy (~2021) Hx of emergency section Hx of breast reduction, elective History of Problems with Anesthesia: No Social History Social History Alcohol intake: current Alcohol intake frequency: holidays/special occasions only Patient Tobacco Use Status: Never used Tobacco Advance Directives: No Advance Directives Information Provided: Yes 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al status: unemployed 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 Meds Allergies Allergy/AdvReac Type Severity Reaction Status Date / Time morphine Allergy Mild Anaphylaxis Verified 03/06/23 10:11 pollen extracts [POLLEN] Allergy Unknown UNKNOWN Verified 03/06/23 10:11 sumatriptan AdvReac Intermediate Numbness Verified 03/06/23 10:11 Home Medications Medication Instructions Recorded Confirmed Last Taken Type albuterol sulfate 90 mcg/actuation 2 puff PO Q4-6H PRN Nausea 08/09/21 10/15/21 Unknown History aerosol inhaler (ProAir HFA) ferrous sulfate 325 mg (65 mg 325 mg PO BID 08/09/21 10/15/21 Unknown History iron) tablet metoprolol succinate 50 mg 150 mg PO DAILY 08/09/21 10/15/21 10/18/21 History tablet,extended release 24 hr menthol 0.44 %-zinc oxide 20.6 % 1 appl topical QID PRN wound 01/23/23 Unknown History topical ointment (Calmoseptine) healing chlorthalidone 25 mg tablet 25 mg PO QAM 03/06/23 Unknown History metoprolol succinate 100 mg 100 mg PO DAILY 03/06/23 Unknown History tablet,extended release 24 hr Exam Airway Mallampati Class: II TM Dist: >3cm Neck ROM: Full Loose/Missing/Broken Teeth: No Heart: RRR Lungs: CTA Assessment and Plan Assessment Anesthesia Assessment: Anesthesia Plan Discussed and Chart Reviewed Final Anesthetic Review Family History of Problems with Anesthesia: No History of Problems with Anesthesia: No NPO: Yes ASA Class: II Final Preanesthetic Review: Meds/Allgs Chart Reviewed, Consent Obtained/Reviewed and Anes Risks/Benef Reviewed Patient Risk: Low Procedure Risk: Low Anesthetic Plan Anesthetic Plan: MAC: Disposition: Standard PACU
[2023-03-10 12:42] VITALS: BP 170/87; PULSE 85; RESP 16; TEMP 37.2; O2SAT 95; BMI 37.3
[2023-03-10 12:44] LABS: UPreg QC Valid YES; Urine Pregnancy NEGATIVE (NEGATIVE)
--- NOTE | 2023-03-10 13:43 | MHC.SHP ---
Pre-Procedural Eval Section A - 24 Hr Update-Section A only Date of Service: 03/10/23 The patient is an INPATIENT: No Changes since office visit: Yes New Medical Problems and Yes Patient answered all questions The patient has been examined within 24 hours of the surgical procedure. The History & Physical has been completed within 30 days and I have reviewed it.: Yes Section B - Complete if H&P > 30 days Chief Complaint: Anemia Allergies: Allergies Allergy/AdvReac Type Severity Reaction Status Date / Time morphine Allergy Mild Anaphylaxis Verified 03/06/23 10:11 pollen extracts [POLLEN] Allergy Unknown UNKNOWN Verified 03/06/23 10:11 sumatriptan AdvReac Intermediate Numbness Verified 03/06/23 10:11 Plan Diagnosis/Plan: Change I have reviewed the history and physical and performed a pertinent physical examination on my patient. In addition to colonoscopy, pt will also undergo a diagnostic upper endoscopy due to recent finding of microcytic anemia on labs. Time Spent With Patient Time: Total time managing care of this patient today ____ minutes.
--- NOTE | 2023-03-10 13:44 | P.OP_ITS ---
Operative Note Operative Note Date of Service: 03/10/23 Narrative: Procedure: Upper endoscopy and colonoscopy Indication: Anemia Endoscopist: Paz Monreal MD Anesthesia Provider: Dr Sheri Baldwin Anesthesia type: MAC Instrument: Olympus GIF-190 and [id number] Consent: Indication, risks vs benefits, and alternatives were discussed with the patient who gave written informed consent to proceed. Monitoring: EKG, pulse, pulse oximetry and blood pressure were monitored throughout the procedure. Plea se see anesthesia flowsheet. EGD Procedure:?? The endoscope was introduced through the mouth, and advanced to the second part of duodenum. The mucosa was carefully examined on slow withdrawal of the endoscope. The patient tolerated the procedure well. There were no immediate complications.? ? EGD Findings:? * Esophagus:? Normal mucosa noted in the entire esophagus. The Z line was at 39 cm. * Stomach:? Normal mucosa was noted in the stomach. Retroflexion was performed in the fundus. Random cold forceps gastric biopsies were taken to rule out H Pylori infection. * Duodenum:? Normal mucosa was noted in the whole of the examined duodenum. Cold forceps biopsies were taken from duodenal bulb and second portion of the duodenum to rule out celiac sprue. ? Colonoscopy Procedure: The patient was then turned for the colonoscopy. A digital rectal exam was performed which was abnormal due to finding of hemorrhoids. A distal attachment cap was affixed to the tip of the colonoscope which was then inserted through the anus and advanced through the colon to the cecum at 65 cm,and terminal ileum. Mucosa was carefully examined under high definition white light as the instrument was slowly withdrawn in a retrograde panoramic fashion. Retroflexion was performed in rectum. The procedure was not difficult. There were no immediate obvious complications. The quality of the prep was BBPS: 2+3+3 = adequate Withdrawal time 8 minutes. Limitations: No limitations. Findings: Mucosa: Normal to cecum and terminal ileum. Right and left sided colon biopsies were taken with a cold forceps to r/o microscopic colitis. Protruding lesions: * Medium external and internal hemorrhoids without stigmata of recent bleeding. Impression: 1. Normal esophagus 2. Normal stomach (biopsy) 3. Normal duodenum (biopsy) 4. Normal colon mucosa (biopsy) 5. Ext and internal hemorrhoids Recommendations:?? * Follow biopsy results. Our office will call or send a letter with results within 7-10 days. * If H pylori +, patient will be prescribed eradication therapy followed by test of cure. * Avoid NSAIDs. * Repeat colonoscopy in 10 years for asymptomatic colorectal cancer screening.
[2023-03-10 14:20] VITALS: BP 134/69; PULSE 79; RESP 18; TEMP 37.4; O2SAT 100
[2023-03-10 14:35] VITALS: BP 145/79; PULSE 81; RESP 18; O2SAT 98
[2023-03-10 14:50] VITALS: BP 169/79; PULSE 76; RESP 18; TEMP 37.6; O2SAT 98
== END 2023-03-10 15:08 | disposition home or self-care (01) ==
PROVIDERS: Anesthesiology; PCP Family Medicine; Visit Provider Internal Medicine
PROC: 0DJD8ZZ Inspection of Lower Intestinal Tract, Via Natural or Artificial Opening Endoscopic (ICD-10-PCS; CPT 45378; principal; 2023-03-10 13:50)
DX: D50.9 Iron deficiency anemia, unspecified (principal); K58.2 Mixed irritable bowel syndrome; K64.8 Other hemorrhoids; K64.4 Residual hemorrhoidal skin tags; K29.50 Unspecified chronic gastritis without bleeding; A04.8 Other specified bacterial intestinal infections; K80.20 Calculus of gallbladder without cholecystitis without obstruction; K76.89 Other specified diseases of liver; K76.0 Fatty (change of) liver, not elsewhere classified; J45.909 Unspecified asthma, uncomplicated; I10 Essential (primary) hypertension; E66.01 Morbid (severe) obesity due to excess calories; Z68.38 Body mass index [BMI] 38.0-38.9, adult; Z79.899 Other long term (current) drug therapy; Z88.5 Allergy status to narcotic agent; Z88.8 Allergy status to other drugs, medicaments and biological substances
CPT/HCPCS: 45380; 43239; 81025; 88305; 88313; 88342; J2704

== ENCOUNTER → 2023-03-10 11:59 | Outpatient (BNV) | payer MEDICAID, SELFPAY | PROVIDERS: PCP Family Medicine; Visit Provider Internal Medicine | DX: D64.9 Anemia, unspecified (principal); K64.8 Other hemorrhoids; K52.89 Other specified noninfective gastroenteritis and colitis | CPT/HCPCS: 43239; 45380 ==

== ENCOUNTER 2023-05-05 09:11 | Outpatient (AMB) | payer MEDICAID, SELFPAY ==
--- NOTE | 2023-05-05 09:34 | A.OFFVIS_ITS ---
Intake Intake Visit Reasons: New Prob - Right Elbow pain Intake Note: Loraine is a 47 year old right hand dominant female who presents today for a evaluation of her right elbow pain. She states that her pain started about 2 months ago. Patient reports she was getting her blood drawn in the main entrance in [facility], she states that the person that was drawing her blood she inserted the needle the wrong way. She is having some swelling that hasn't gone down since she was seen at the walk in center at [facility]. Patient states that her pain is better when she is using the lidocaine patches and taking a muscle relaxer that was giving to her by the walk in. Allergies morphine Allergy (Mild, Verified 05/05/23 09:38) Anaphylaxis pollen extracts [POLLEN] Allergy (Unknown, Verified 05/05/23 09:38) UNKNOWN sumatriptan Adverse Reaction (Intermediate, Verified 05/05/23 09:38) Numbness HPI New Prob - Right Elbow pain HPI Details 47-year-old right hand dominant female gema jones presents in the office today for an evaluation of right elbow pain. Patient reports the pain began about 2 months ago, in 02/2023. She states she was getting lab work done when the needle was inserted the wrong way. She claims to have mild edema that has not resolved. She reports being seen at the Walk-in Clinic at [facility]. She confirms the use of Lidocaine patches and muscle relaxer, which was prescribed at the Walk-in Clinic. She states both of these decrease her pain in the right elbow. [facility] Medical History Hemorrhoids with complication Morbid obesity Asthma Hypertension Migraines Surgical History History of hemorrhoidectomy (~2021) Hx of emergency section Hx of breast reduction, elective Family History Mother Kidney malignancy Sister Breast cancer Maternal Grandmother Skin cancer Social History Alcohol intake: current Alcohol intake frequency: holidays/special occasions only Patient Tobacco Use Status: Never used Tobacco 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al status: unemployed 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 Review of Systems Const All systems reviewed & are unremarkable except as noted in HPI and below Physical Exam Const General: cooperative, healthy appearing and no acute distress Resp Effort & Inspection: normal respiratory effort and able to speak in complete sentences Cardio Rate: regular rate Peripheral pulses: Peripheral pulses 2+ throughout GI Palpation (GI): Soft to palpation Skin Lesions: no lesions Rashes: no rashes Extrem Other: Right elbow: Normal to inspection. No ecchymosis, erythema, or edema. Tenderness to palpation over the medial and lateral epicondyle. Positive pain at the lateral epicondyle with resisted wrist extension. No pain over the medial epicondyle with resisted wrist flexion. Full ROM in flexion, extension, pronation, and supination. NO laxity with varus or valgus stress. No numbness or tingling. Radial pulse intact. Capillary refill is brisk. Assessment & Plan Assessment & Plan (1) Medial epicondylitis, right elbow: Code(s): M77.01 - Medial epicondylitis, right elbow (2) Lateral epicondylitis, right elbow: Code(s): M77.11 - Lateral epicondylitis, right elbow Plan Ms. Luis Andujar is a 47-year-old right hand dominant female who presents in the office today for an evaluation of right elbow pain. Patient reports the pain began about 2 months ago, in 02/2023. She states she was getting lab work done when the needle was inserted the wrong way. She claims to have mild edema that has not resolved. She reports being seen at the Walk-in Clinic at [facility]. She c onfirms the use of Lidocaine patches and muscle relaxer, which was prescribed at the Walk-in Clinic. She states both of these decrease her pain in the right elbow. The patient will be referred to occupational therapy. I sent in a refill for her Lidocaine patches. I also sent a prescriptions for topical pain cream and Diclofenac 75 mg PO BID. Follow up will be in 6 weeks. X-rays of the right elbow which were obtained while in the office today and were reviewed by me, Renetta Singleton PA-C, revealed no acute fracture or dislocation. No evidence of arthritic changes. Orders: Orders XR elbow RT min 3V Today M25.529 - Pain in unspecified elbow OT Evaluation and Treatment Today M77.01 - Medial epicondylitis, right elbow, M77.11 - Lateral epicondylitis, right elbow Medications: New lidocaine 4% (AsperFlex (lidocaine)) 1 patch topical DAILY PRN 30 ea 0RF pain diclofenac sodium 75 mg PO BID PRN 60 tabs 0RF pain Patient Instructions: Scribed by Isabelle Gold medical appointment clerk, for Renetta Singleton PA-C on 05/05/2023 at 9:13 am, EST. Coding Level of Care Code New Pt Level 4 (94216) Diagnoses Medial epicondylitis, right elbow M77.01 Lateral epicondylitis, right elbow M77.11
== END 2023-05-05 11:27 | disposition home or self-care (01) ==
PROVIDERS: PCP Family Medicine; Visit Provider Physician Assistant
DX: M77.01 Medial epicondylitis, right elbow (principal); M77.11 Lateral epicondylitis, right elbow
CPT/HCPCS: 99213

== ENCOUNTER 2023-05-05 10:35 | Outpatient (REF) | payer MEDICAID, SELFPAY ==
--- NOTE | ~2023-05-05 | XR_ITS ---
EXAMINATION: XR ELBOW, RIGHT CLINICAL INFORMATION: Pain. COMPARISON: None available. TECHNIQUE: AP, lateral, and oblique views of the right elbow. FINDINGS: The bones and soft tissues are normal. No fracture or joint effusion. Alignment is anatomic. Joint spaces are maintained. XR/XR elbow RT min 3V IMPRESSION: Normal right elbow.
== END 2023-05-05 10:36 | disposition home or self-care (01) ==
LOC: HO.HOSX 10:35
PROVIDERS: Visit Provider Physician Assistant
DX: M77.01 Medial epicondylitis, right elbow (principal); M77.11 Lateral epicondylitis, right elbow
CPT/HCPCS: 73080; 99212

== ENCOUNTER 2023-05-26 14:20 | Outpatient (RCR) | payer MEDICAID, SELFPAY ==
--- NOTE | 2023-05-26 16:25 | MHC.OT.EP ---
[address] [phone] Occupational Therapy Plan of Care Patient Name: Loraine Andujar Date of Evaluation: 05/26/23 Diagnosis: Right elbow lateral epicondylitis Right elbow medial epicondylitis Pain Location: 7-9 constant right lateral elbow > medial elbow Ache. pinching Pain Score: 7 Pain Scale Used: Numeric (0 - 10) Aggravating Factors: Gripping , lifting ,grabbing, hand stuff Alleviating Factors: Heat Assessment: Loraine is a 47-year-old right hand dominant female who reports right elbow pain began about 2 months ago, in 02/2023. She states she was getting lab work done when the needle was inserted the wrong way. She claims to have mild edema that has not resolved. She reports being seen at the Walk-in Clinic at [facility]. She confirms the use of Lidocaine patches and muscle relaxer, which was prescribed at the Walk-in Clinic. She states both of these decrease her pain in the right elbow. The patient will be referred to occupational therapy and a refill for her Lidocaine patches and prescriptions for topical pain cream and Diclofenac 75 mg PO BID. Follow up will be in 6 weeks. X-rays of the right elbow which were obtained while in the office today and were reviewed by me, Renetta Singleton PA-C, revealed no acute fracture or dislocation. No evidence of arthritic changes. 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 Right conditioning room worker to > 45 lb. [place]win with self management of elbow epicondylitis Treatment Plan: Therapeutic Exercise Therapeutic Activity Home Exercise Program Patient Education ADL Training Ultrasound Iontophoresis MHP Soft Tissue Mobilization Kinesiotaping Electronically Signed By: Marti Bravo OT CHT CLT Please Sign and return to therapist. Thank you once again for your referral.
== END 2023-07-30 10:47 | disposition home or self-care (01) ==
LOC: HO.OT 14:20
PROVIDERS: PCP Family Medicine; Visit Provider Physician Assistant
DX: M77.11 Lateral epicondylitis, right elbow (principal); M77.01 Medial epicondylitis, right elbow
CPT/HCPCS: 97140; 97166

== ENCOUNTER 2023-10-23 17:33 | Outpatient (REF) | payer MEDICAID, SELFPAY ==
[2023-10-27 17:13] LABS: HPV mRNA E6/E7 Not Detected (Not Detected)
== END 2023-10-23 17:34 | disposition home or self-care (01) ==
LOC: HO.HHCLNP 17:33
PROVIDERS: Visit Provider Family Medicine
DX: Z12.4 Encounter for screening for malignant neoplasm of cervix (principal)
CPT/HCPCS: 36415; 87624; 88175

== ENCOUNTER 2023-10-30 08:28 | Outpatient (REF) | payer MEDICAID, SELFPAY ==
[2023-10-30 11:33] LABS: MANUAL DIFF FLAG NO
[2023-10-30 11:42] LABS: Basophils Percent Auto 0.3 % (0-2); Eosinophils Absolute Auto 0.2 X10*3/uL (0.0-0.4); Eosinophils Percent Auto 3.7 % (0-4); Hemoglobin 10.9 g/dl (12.0-16.0); Imm Gran Abs Auto 0.01 X10*3/uL (0.00-0.03); Imm Gran Pct Auto 0.2 % (0.0-0.4); Lymphocytes Absolute Auto 1.9 X10*3/uL (1.2-4.9); Lymphocytes Percent Auto 31.5 % (20-40); Mean Corpuscular Hemoglobin 27.9 pg (27.0-33.0); Mean Corpuscular Volume 84.6 fL (80.0-98.0); Mean Platelet Volume 10.2 fL (9.4-12.3); Monocytes Absolute Auto 0.5 X10*3/uL (0.1-1.2); Monocytes Percent Auto 8.5 % (2-11); Neutrophils Absolute Auto 3.4 x10*3/uL (2.0-8.3); Neutrophils Percent Auto 55.8 % (45-73); Platelet Count 272 X10*3/uL (160-400); Red Cell Distribution Width 15.1 % (11.0-16.0); White Blood Count 6.2 X10*3/uL (4.8-10.8)
[2023-10-30 12:15] LABS: Estimated Average Glucose 123 mg/dL; Hemoglobin A1c % 5.9 % (<6.0)
[2023-10-30 12:20] LABS: Cholesterol 135 mg/dL (<200); Ferritin 16 ng/mL (10-250); HDL Cholesterol 42 mg/dL (>40); Iron 48 mcg/dL (30-160); LDL Cholesterol Calculated 77 mg/dL (<100); Percent Iron Saturation 17 % (15-50); TSH reflex Free T4 0.87 uIU/mL (0.32-4.0); Total Iron Binding Capacity 288 mcg/dL (228-428); Triglycerides 80 mg/dL (<150); Unsaturated Iron Binding 240 ug/dL; Vitamin B12 515 pg/mL (200-900)
== END 2023-10-30 08:29 | disposition home or self-care (01) ==
LOC: HO.HHCL 08:28
PROVIDERS: Visit Provider Family Medicine
DX: D50.9 Iron deficiency anemia, unspecified (principal); E66.01 Morbid (severe) obesity due to excess calories
CPT/HCPCS: 36415; 80061; 82607; 82728; 83036; 83540; 84443; 85025

== ENCOUNTER 2023-11-06 06:49 | Outpatient (REF) | payer MEDICAID, SELFPAY ==
--- NOTE | ~2023-11-06 | XR_ITS ---
EXAMINATION: XR KNEE, LEFT CLINICAL INFORMATION: M25.569 - Pain in unspecified knee COMPARISON: None available. TECHNIQUE: Three views of the left knee. FINDINGS: No fracture, dislocation, or suspicious bone lesion. There is normal alignment. Minimal medial and patellofemoral lateral facet joint space narrowing with trace osteophytic spurring. Lateral compartment joint space is normal. There is no joint effusion. Soft tissues appear normal. XR/XR knee LT 3V IMPRESSION: 1. No acute findings left knee. 2. Minimal osteoarthrosis medial and patellofemoral compartments. Electronically signed by: Moi Schrader MD 01/14/2024 12:48 PM [facility]
== END 2023-11-06 06:50 | disposition home or self-care (01) ==
LOC: HO.HOSX 06:49
PROVIDERS: PCP Family Medicine; Visit Provider Physician Assistant
DX: M25.562 Pain in left knee (principal); M17.12 Unilateral primary osteoarthritis, left knee
CPT/HCPCS: 20610; 73562; 99212; J1010

== ENCOUNTER → 2023-11-06 06:53 | Outpatient (BNV) | payer MEDICAID, SELFPAY | PROVIDERS: PCP Family Medicine; Visit Provider Radiology Diagnostic Radiology | DX: M25.562 Pain in left knee (principal) | CPT/HCPCS: 73562 ==

== ENCOUNTER 2023-11-06 07:50 | Outpatient (AMB) | payer MEDICAID, SELFPAY ==
--- NOTE | 2023-11-06 08:13 | MHC.OFFVIS ---
Vital Signs 11/06/23 08:20 Height 5 ft 6 in Weight 248 lb BMI 40.0 Handedness Right Intake Visit Reasons: Newprob-Left knee pain Intake Note: Loraine is a 48 year old female who presents today for a evaluation of her left knee pain, last inj was on her right knee on 07/23/20. No hx of injury. Patient reports ongoing pain for about a month. She states since she has been putting more pressure to one side her left hip is starting to hurt.She mentions she is unable to bend her knee. Allergies morphine Allergy (Mild, Verified 11/06/23 08:20) Anaphylaxis pollen extracts [POLLEN] Allergy (Unknown, Verified 11/06/23 08:20) UNKNOWN sumatriptan Adverse Reaction (Intermediate, Verified 11/06/23 08:20) Numbness HPI HPI Newprob-Left knee pain: Details: 48-year-old right hand dominant female who presents in the office today for an evaluation of left knee pain. I last saw the patient for right knee pain on 07/23/20 when she received a cortisone injection to the right knee. While in the office today, the patient reports ongoing left knee pain for about a month. She mentions she is unable to bend her left knee secondary to pain. She denies any history of injury to her left knee. She noticed experiencing left hip pain due to applying more pressure on her left side. [facility] Medical History Hemorrhoids with complication Morbid obesity Asthma Hypertension Migraines Surgical History History of hemorrhoidectomy (~2021) Hx of emergency section Hx of breast reduction, elective Family History Mother Kidney malignancy Sister Breast cancer Maternal Grandmother Skin cancer Social History Alcohol intake: current Alcohol intake frequency: holidays/special occasions only Patient Tobacco Use Status: Never used Tobacco 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al status: unemployed 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 Review of Systems Const All systems reviewed & are unremarkable except as noted in HPI and below Physical Exam Vital Signs: BMI result Body Mass Index 40.0 Const General: cooperative, healthy appearing and no acute distress Resp Effort & Inspection: normal respiratory effort and able to speak in complete sentences Cardio Rate: regular rate Peripheral pulses: Peripheral pulses 2+ throughout GI Palpation (GI): Soft to palpation Skin Lesions: no lesions Rashes: no rashes Extrem Other: Left knee: Normal to inspection. No ecchymosis, erythema or joint effusion. No medial or lateral joint line tenderness. Negative Ruddy. Negative anterior drawer. There is crepitus felt under the patella with knee flexion and extension. NVI. Office Procedures Joint Injection/Aspiration Joint Injection/Aspiration Primary Site: left knee Prep: site was prepped using aseptic technique, ethochloride spray was applied and injection warnings given Injected: 80 mg of, DepoMedrol, with 8 mL of (2% plain lido ) and in the joint Approach Used: anterolateral Procedure: The patient tolerated the procedure well, but had some pain with the injection and there was some relief with the local anesthesia Coding 41474 - Large joint Procedure code (CPT) selection complete Assessment & Plan Assessment & Plan (1) Patellofemoral arthritis of left knee: Code(s): M17.12 - Unilateral primary osteoarthritis, left knee Category: Medical Plan Ms. Luis Andujar is a 48-year-old right hand dominant female who presents in the office today for an evaluation of left knee pain. I last saw the patient for right knee pain on 07/23/20 when she received a cortisone injection to the right knee. While in the office today, the patient reports ongoing left knee pain for about a month. She mentions she is unable to bend her left knee secondary to pain. She denies any history of injury to her left knee. She noticed experiencing left hip pain due to applying more pressure on her left side. The patient was offered a cortisone injection in the left knee with 80 mg of Depo-Medrol. The patient was explained the risks, benefits, and alternatives to receiving this injection. After receiving consent for the injection, the patient had the procedure done while in the office today. The patient tolerated the procedure well with no complication. Follow up will be PRN, or sooner if needed. X-rays of the left knee which were obtained while in the office today and were reviewed by me, Renetta Singleton PA-C, revealed patellofemoral arthritis. Orders: Orders XR knee LT 3V Today M25.569 - Pain in unspecified knee Patient Instructions: Scribed by Valencia Mahmood, medical psychotherapist, for Renetta Singleton PA-C on 11/06/23 at 8:20 am EST. Coding Level of Care Code Est Pt Level 3 (90338) Complex EM visit Add On G2211 Diagnoses Patellofemoral arthritis of left knee M17.12 CPT Codes Coding - 21487 Large joint: 75945 - Large joint ([id number])
[2023-11-06 08:20] VITALS: BMI 40.0
== END 2023-11-06 08:56 | disposition home or self-care (01) ==
PROVIDERS: PCP Family Medicine; Visit Provider Physician Assistant
DX: M17.12 Unilateral primary osteoarthritis, left knee (principal)
CPT/HCPCS: 20610; 99213

== ENCOUNTER 2024-01-01 15:05 | Outpatient (REF) | payer MEDICAID, SELFPAY ==
--- NOTE | ~2024-01-01 | MM_ITS ---
EXAMINATION: MM SCREENING DIGITAL BREAST TOMOSYNTHESIS, BILATERAL CLINICAL INFORMATION: Screening. Asymptomatic. COMPARISON: Mammography: Comparison is made with available priors TECHNIQUE: Digital breast mammography with tomosynthesis is performed in both the craniocaudal and mediolateral oblique views along with computer-aided detection (CAD). FINDINGS: The breasts are heterogeneously dense, which may obscure small masses (ACR BI-RADS breast composition Category c). Reduction mammoplasty. There are no significant masses, abnormal calcifications, or other abnormalities. MM/MM tomosynthesis screening BI IMPRESSION: No mammographic evidence of malignancy. ASSESSMENT: BI-RADS BI-RADS 2 - Benign Findings RECOMMENDATION: Routine annual mammography screening. 1 year F/U This examination should not preclude the clinical evaluation of a suspicious palpable abnormality. This patient's information was entered into a reminder system with a target due date for their next mammogram. Electronically signed by: Deloris Flores DO 01/13/2024 09:00 AM [facility]ONI
== END 2024-01-01 15:06 | disposition home or self-care (01) ==
LOC: HO.MAMMO 15:05
PROVIDERS: PCP Family Medicine; Visit Provider Family Medicine
DX: Z12.31 Encounter for screening mammogram for malignant neoplasm of breast (principal)
CPT/HCPCS: 77063; 77067

== ENCOUNTER → 2024-01-01 15:15 | Outpatient (BNV) | payer MEDICAID, SELFPAY | PROVIDERS: PCP Family Medicine; Visit Provider Internal Medicine | DX: Z12.31 Encounter for screening mammogram for malignant neoplasm of breast (principal) | CPT/HCPCS: 77063; 77067 ==

== ENCOUNTER 2024-07-06 14:17 | Outpatient (REF) | payer MEDICAID, SELFPAY ==
--- OUTSIDE RECORDS SUMMARY | 2024-07-06 15:12 | XMS_ITS | Clinical Summary ---
Author Organization [address] [facility] Address [address] [place] [address] Phone Care Team Providers Care Brokerage Manager Name Role Phone Gisselle Pfeiffer MD Primary Care Provider [phone] Allergies Active Allergy Reactions Criticality Noted Date Comments Bee Pollen 03/06/2023 Other reaction(s): UNKNOWN Morphine Anaphylaxis High 03/06/2023 Sumatriptan High 07/11/2020 Other reaction(s): Numbness Medications Wegovy 0.5 mg/0.5 mL injection pen INJECT ONE PEN (=0.5MG) SUBCUTANEOUSLY ONCE A WEEK DIRECTED 12/16/19 24 Active ondansetron (ZOFRAN) 4 mg tablet Take 1 tablet (4 mg total) by mouth every 8 (eight) hours if needed. 12/11/19 24 Active Botox 200 unit injection 07/03/19 24 Active metoprolol succinate (TOPROL-XL) 100 mg 24 hr tablet TAKE 1 TABLET BY MOUTH DAILY. DOSE CHANGED 10/22/2022 DO NOT CRUSH OR CHEW. 10/20/19 24 Active ubrogepant (Ubrelvy) 100 mg tablet Take 1 tablet (100 mg total) by mouth 1 (one) time if needed for migraine. 10 tablet 5 02/08/20 24 Active tiZANidine (ZANAFLEX) 2 mg tablet 1 po qd PRN neck muscle spasm 30 tablet 1 07/06/19 25 Active tiZANidine (ZANAFLEX) 2 mg tablet 1 po qd PRN neck muscle spasm 30 tablet 1 04/05/19 25 025 Discontin ued(Reord er) Encounters Date Type Department Care Team Description 04/27/2024 11:20 AM EDT Procedure visit [facility] [address] [facility] [address] [place] [phone] Karina Clement MD Chronic migraine with aura without status migrainosus, not intractable (Primary Dx) from Last 3 Months Social History Tobacco Use Types Packs/Day Years Used Date Smoking Tobacco: Never Assessed Comments Unknown Sex and Gender Information Value Date Recorded Sex Assigned at Not on file Legal Sex Female 3:59 AM EST Gender Identity Not on file Sexual Orientation Not on file Last Filed Vital Signs Vital Sign Reading Time Taken Comments Blood Pressure 157/103 03/11/2024 10:57 AM EST Pulse 75 03/11/2024 10:57 AM EST Temperature 36.4 ??C (97.5 ??F) 03/11/2024 10:[address] Respiratory Rate - - Oxygen Saturation 98% 03/11/2024 10:57 AM EST Inhaled Oxygen Concentration - - Weight 112 kg (248 lb) 03/11/2024 10:57 AM EST Height 167.6 cm (5' 6 ) 03/11/2024 10:57 AM EST Body Mass Index 40.03 03/11/2024 10:57 AM EST Plan of Treatment Upcoming Encounters Date Type Department Care Team (Late st Contact Info) Description 07/27/2024 11:20 AM EDT Procedure visit [facility] [address] [phone] Karina Clement MD 175 [facility] [place] [address] [place] [phone] Health Maintenance Due Date Last Done Comments Hepatitis A Vaccines (1 of 2 - Risk 2-dose series) 05/06/1995 01/27/2008, 07/07/2007 Cervical Cancer Screening: Pap Smear 1997 Breast Cancer Screening 07/25/2023 07/24/2021 COVID-19 Vaccine ( season) 2023 06/04/2021, 05/14/2021 Colorectal Cancer Screening: Colonoscopy 12/28/2023 Social Influencers of Health Screening 12/28/2023 Hypertension/CHF/CAD Annual BMP Blood Test 01/06/2024 Depression Screening 10/22/2024 10/23/2023 DTaP,Tdap,and Td Vaccines (3 - Td or Tdap) 10/26/2024 10/26/2014, 02/23/2008 Cholesterol Screening (Lipid Panel) 10/29/2028 10/30/2023 HIV Screening Completed 07/25/2022 Hepatitis C Screening Completed 07/25/2022 Pneumococcal Vaccine: Pediatrics (0 to 5 Years) and At-Risk Patients (6 to 64 Years) Completed 10/23/2022 Hepatitis B Vaccines Completed 10/23/2023, 11/20/2022, 10/23/2022, Additional history exists Influenza Vaccine Completed 10/23/2023, , 01/22/2022, Additional history exists HIB Vaccines Aged Out No longer eligi ble based on patient's age to complete this topic HPV Vaccines Aged Out No longer eligi ble based on patient's age to complete this topic IPV Vaccines Aged Out No longer eligi ble based on patient's age to complete this topic MMR Vaccines Aged Out No longer eligi ble based on patient's age to complete this topic Meningococcal ACWY Vaccine Aged Out N o longer eligible based on patient's age to complete this topic Meningococcal B Vaccine Aged Out No l onger eligible based on patient's age to complete this topic RSV Immunization Patients Under 20 months Aged Out No longer eligible based on patient's age to complete this topic Varicella Vaccines Aged Out No longer eligible based on patient's age to complete this topic Insurance [place] Care Teams Brokerage Manager Relationship Specialty Start Date End Date Creighton, MD Gisselle [address] [place] [phone] PCP - General Family Medicine 01/06/24
[2024-07-06 16:15] LABS: MANUAL DIFF FLAG NO
[2024-07-06 16:27] LABS: Basophils Percent Auto 0.2 % (0-2); Eosinophils Absolute Auto 0.1 X10*3/uL (0.0-0.4); Eosinophils Percent Auto 1.7 % (0-4); Hematocrit 33.8 % (37.0-47.0); Hemoglobin 11.3 g/dl (12.0-16.0); Imm Gran Abs Auto 0.03 X10*3/uL (0.00-0.03); Imm Gran Pct Auto 0.5 % (0.0-0.4); Lymphocytes Absolute Auto 1.5 X10*3/uL (1.2-4.9); Lymphocytes Percent Auto 22.8 % (20-40); Mean Corpuscular HGB Conc 33.4 g/dl (31.0-35.0); Mean Corpuscular Hemoglobin 28.6 pg (27.0-33.0); Mean Corpuscular Volume 85.6 fL (80.0-98.0); Mean Platelet Volume 10.5 fL (9.4-12.3); Monocytes Absolute Auto 0.4 X10*3/uL (0.1-1.2); Monocytes Percent Auto 5.7 % (2-11); Neutrophils Absolute Auto 4.6 x10*3/uL (2.0-8.3); Neutrophils Percent Auto 69.1 % (45-73); Platelet Count 239 X10*3/uL (160-400); Red Blood Count 3.95 X10*6/uL (4.20-5.50); Red Cell Distribution Width 13.7 % (11.0-16.0); White Blood Count 6.6 X10*3/uL (4.8-10.8)
[2024-07-06 16:39] LABS: Iron 72 mcg/dL (30-160); Percent Iron Saturation 26 % (15-50); Total Iron Binding Capacity 277 mcg/dL (228-428); Unsaturated Iron Binding 205 ug/dL
[2024-07-06 16:59] LABS: Ferritin 22 ng/mL (10-250)
[2024-07-06 17:07] LABS: Folate 9.5 ng/mL (> or = 4.0); Vitamin B12 417 pg/mL (200-900)
[2024-07-09 15:28] LABS: TS Negative Control Passed; TS Panel A 0; TS Panel B 0; TS Positive Control Passed; TSpotTB Negative (Negative)
== END 2024-07-06 14:18 | disposition home or self-care (01) ==
LOC: HO.HHCL 14:17
PROVIDERS: Visit Provider Family Medicine
DX: D64.9 Anemia, unspecified (principal); Z11.1 Encounter for screening for respiratory tuberculosis
CPT/HCPCS: 36415; 82607; 82728; 82746; 83540; 84443; 85025; 86481